=== PATIENT | male | born 1995 | race African-American/Black ===

== ENCOUNTER 2021-05-02 23:10 | Emergency (ER) | payer SELFPAY ==
[~2021-05-02] VITALS: Ht 180.3 cm; Wt 96.0 kg
[2021-05-03] MEDS ORDERED: IBUPROFEN 600MG TABLET PO STA (02:33)
[2021-05-03 02:59] LABS: BASOPHILS % 0.7 % (0.0-2.0); HEMATOCRIT. 48.6 % (42.0-52.0); HEMOGLOBIN. 16.9 g/dL (14.0-18.0); LYMPHOCYTES % 31.6 % (20.0-50.0); MEAN CORPUSCULAR HEMOGLOBIN 34.2 pg (28.0-32.0); MEAN CORPUSCULAR VOLUME 98.1 fL (80.0-94.0); MEAN PLATELET VOLUME 6.4 fl (7.4-10.4); MONOCYTES % 8.4 % (2.0-8.0); NEUTROPHILS % 58.3 % (40.0-76.0); PLATELET 294 x1000/uL (130-400); RED BLOOD CELL COUNT 4.95 mill/uL (4.7-6.1); RED CELL DISTRIBUTION WIDTH 12.5 % (11.6-14.6)
[2021-05-03 03:03] LABS: CHLORIDE 104 mEq/L (98-107)
[2021-05-03 03:06] LABS: CLARITY URINE CLEAR (CLEAR); COLOR URINE YELLOW (YELLOW); KETONES URINE 1+ (NEGATIVE); LEUKOCYTE ESTERASE URINE NEGATIVE (NEGATIVE); NITRITE URINE NEGATIVE (NEGATIVE); OCCULT BLOOD URINE NEGATIVE (NEGATIVE); PROTEIN URINE TRACE (NEGATIVE); SPECIFIC GRAVITY URINE 1.031 (1.005-1.030)
[2021-05-03 04:30] VITALS: BP 130/66
[2021-05-03] MEDS ORDERED: IBUP-2029 MT (04:38)
== END 2021-05-03 04:52 | disposition home or self-care (01) ==
LOC: ER 23:10
DX: R07.89 Other chest pain (principal)
CPT/HCPCS: 36415; 71045; 80053; 81003; 83880; 84484; 85025; 85379; 93005; 99285